=== PATIENT | female | born 1985 | race Caucasian/White ===

== ENCOUNTER 2019-03-08 22:04 | Emergency (ER) | payer OTHER ==
[~2019-03-08] VITALS: Ht 157.5 cm; Wt 57.9 kg
[2019-03-08 22:08] VITALS: Ht 157.5 cm; Wt 57.9 kg
[2019-03-08 22:43] LABS: BASOPHIL % 1.5 % (0-2)
[2019-03-08 22:49] LABS: PLATELET COUNT 440 x10^3mcL (130-400); RED CELL DISTRIBUTION WIDTH 15.1 % (11.5-14.5)
[2019-03-08 22:59] LABS: CALCIUM 9.1 mg/dL (8.5-10.1); CARBON DIOXIDE 34.1 mmol/L (21-32); CHLORIDE SERUM 102 mmol/L (98-107); CREATININE SERUM 0.6 mg/dL (0.6-1.0); GFR1 > 60 mL/min; GLUCOSE SERUM 104 mg/dL (74-106); POTASSIUM SERUM 3.5 mmol/L (3.5-5.1); SODIUM SERUM 140 mmol/L (136-145)
[2019-03-08 23:03] LABS: ALBUMIN 3.7 g/dL (3.4-5.0); ALKALINE PHOSPHATASE 79 U/L (46-116); ALT/SGPT 16 U/L (14-59); AST/SGOT 6 U/L (15-37); BILIRUBIN TOTAL 0.31 mg/dL (0.20-1.00); LIPASE 123 IU/L (73-393); TOTAL PROTEIN, SERUM 8.1 g/dL (6.4-8.2)
[2019-03-09 00:10] VITALS: BP 115/65
== END 2019-03-09 00:10 | disposition home or self-care (01) ==
LOC: ED 22:04
DX: K29.70 Gastritis, unspecified, without bleeding (principal); J45.909 Unspecified asthma, uncomplicated
CPT/HCPCS: J1885; J2405; J7030